=== PATIENT | female | born 1995 | race Two or more races ===

== ENCOUNTER 2023-12-19 11:30 | Day surgery (SDC) | payer OTHER ==
[2023-12-15 09:11] LABS: HEMATOCRIT 32.6 % (36.0-45.00); HEMOGLOBIN 10.7 g/dL (12.0-15.00); MEAN CELL VOLUME 80.5 fL (80.00-100.00); MEAN CORPUSCULAR HEMOGLOBIN 26.3 pg (27.00-32.0); MEAN CORPUSCULAR HGB CONC 32.6 g/dl (32.0-36.0); PLATELET COUNT 388 K/uL (150-450); RED BLOOD COUNT 4.05 M/uL (4.00-6.00); RED CELL DISTRIBUTION WIDTH 16.5 % (11.5-14.5)
[2023-12-15 09:34] LABS: INR 1.08; PARTIAL THROMBOPLASTIN TIME 29.7 SECONDS (22.0-34.0); PROTHROMBIN TIME 11.3 SECONDS (9.0-11.5)
[2023-12-15 09:40] LABS: ALBUMIN 3.5 gm/dL (3.4-5.0); BILIRUBIN TOTAL 0.36 mg/dL (0.3-1.2); CALCIUM 9.1 mg/dL (8.5-10.1); CREATININE SERUM 0.69 mg/dL (0.55-1.02); GFR 100.59; POTASSIUM 4.26 mEq/L (3.5-5.1); TOTAL PROTEIN 7.5 gm/dL (6.4-8.2)
[2023-12-15 09:41] LABS: URINE APPEARANCE Clear; URINE BILIRRUBIN Negative (NEGATIVE); URINE BLOOD Small; URINE COLOR Yellow; URINE GLUCOSE Negative (NEGATIVE); URINE LEUKOCYTE Negative; URINE NITRATE Negative; URINE PROTEIN Negative (NEGATIVE); URINE UROBILINOGEN 0.2 E.U./dl
[2023-12-15 09:45] LABS: URINE BACTERIA 269.6 uL (0.0-1933); URINE EPITHELIAL CELLS 16.2 uL (0.0-38.8); URINE RBC 15.1 uL (0.0-20.8); URINE WBC 2.9 uL (0.0-23.2)
[~2023-12-19 11:30] MED LIST: PROVERA2.5 MG
[2023-12-19] MEDS ORDERED: POVIDONE-IODINE 118 ML BOTT TOP ONE (16:57)
[2023-12-19] MEDS ORDERED: CHLORHEXIDINE GLUCONATE 120 ML BOTTLE TOP ONE (17:30)
[2023-12-19] MEDS ORDERED: KETOROLAC TROMETHAMINE 30 MG VIAL IV ONE (18:00)
[2023-12-19] MEDS ORDERED: RINGERS SOLUTION,LACTATED 1,000 ML IV SCH (18:00)
[2023-12-19] MEDS ORDERED: FAMOTIDINE/PF 20 MG/2 ML VIAL IV ONE (18:15)
[2023-12-19] MEDS ORDERED: ONDANSETRON HCL 2 MG/ML VIAL IV PRN (18:15)
[2023-12-19] MEDS ORDERED: MORPHINE SULFATE 4 MG/ML VIAL IV PRN (18:15)
[2023-12-19] MEDS ORDERED: KETOROLAC TROMETHAMINE 30 MG VIAL ONE (21:52)
[2023-12-19] MEDS ORDERED: FAMOTIDINE/PF 20 MG/2 ML VIAL ONE (21:53)
== END 2023-12-20 00:15 | disposition home or self-care (01) ==
LOC: CIR.AMB 11:30
PROVIDERS: ATTEND General Practice
DX: N84.0 Polyp of corpus uteri (principal); D39.0 Neoplasm of uncertain behavior of uterus; N93.8 Other specified abnormal uterine and vaginal bleeding